=== PATIENT | female | born 1955 | race Caucasian/White ===

== ENCOUNTER 2022-12-14 07:35 | Outpatient (REF) | payer MEDICARE, SELFPAY ==
--- NOTE | ~2022-12-14 | CT_ITS ---
EXAMINATION: CT HEAD WITHOUT CONTRAST CLINICAL INFORMATION: Migraine headaches. COMPARISON: None available. TECHNIQUE: Contiguous axial imaging was performed from the skull base to vertex without intravenous administration of contrast. This CT examination was performed using dose optimization techniques as appropriate, variously including the following: *Automated exposure control. *Adjustment of mA and/or kV according to patient size (this includes techniques or standardized protocols for targeted exams where dose is matched to indication/reason for exam; i.e. extremities or head). *Use of iterative reconstruction technique. DLP: 648 mGy-cm FINDINGS: There is no evidence of acute intracranial hemorrhage or edematous territorial infarction. [place]-white matter differentiation is preserved. A few foci of hypoattenuation in the periventricular and deep white matter are consistent with mild to moderate microangiopathy. The ventricles are normal in morphology and size. No evidence for obstructive hydrocephalus. No abnormal mass effect or midline shift. No extra-axial fluid collections. Calcific atherosclerotic disease of the intracranial internal carotid arteries. No hyperdense vessel sign. No acute soft tissue or osseous abnormalities. Mild mucosal thickening of the paranasal sinuses. The mastoid air cells and middle ear cavities are clear. CT/CT head/brain wo IV con IMPRESSION: 1. No evidence of acute intracranial hemorrhage or edematous territorial infarction. 2. Mild to moderate underlying microangiopathy.
== END 2022-12-14 07:36 | disposition home or self-care (01) ==
LOC: HO.CT 07:35
PROVIDERS: PCP Internal Medicine; Visit Provider Psychiatry & Neurology Neurology
DX: G43.909 Migraine, unspecified, not intractable, without status migrainosus (principal)
CPT/HCPCS: 70450

== ENCOUNTER 2025-05-12 09:15 | Outpatient (AMB) | payer MEDICARE, SELFPAY ==
--- NOTE | 2025-05-12 09:19 | MHC.OFFVIS ---
Intake Visit Reasons: 6m Allergies latex Allergy (Unknown, Verified 05/12/25 09:25) Unknown Penicillins Allergy (Unknown, Verified 05/12/25 09:25) Unknown Sulfa (Sulfonamide Antibiotics) Allergy (Unknown, Verified 05/12/25 09:25) Unknown Medication List - Last Reconciled 05/12/25 by Thelma Maldonado CNP amitriptyline 100 mg PO BEDTIME gzcxwcfbjp-qmykjuryhjrpt-rixt 50-325-40 mg 1 tab PO Q6H PRN duloxetine 120 mg PO DAILY nitrofurantoin monohyd/m-cryst 100 mg 1 cap PO BID omeprazole 40 mg PO BID propranolol ER 120 mg PO DAILY simvastatin 20 mg PO BEDTIME HPI Comments Details: She was doing okay. Migraines were not bad. Butalbital as needed helped. More generalized body pains all over from fibromyalgia, worse with colder weather. Balance off at times. Few falls without any injuries. Tremors were stable. No functional impairment. Brain fog was about the same. Sleep was not so good. Under some stress related to helping care for her sister with MS. Had episode in [facility] 2024 while in [place] where she suddenly could not move legs, no further episodes. Had cataract surgery in 2024. Both her parents passed within months of each other in 2023. Diagnosed as complicated migraine in 10/2015. Had normal labs and MRI brain. [facility] Medical History (Updated 05/12/25 @ 09:23 by Thelma Maldonado CNP) Left leg weakness Fibromyalgia Migraine Peripheral neuropathy Review of Systems Const Denies chills, Denies daytime sleepiness, Denies difficulty sleeping, Reports fatigue, Denies fever(s), Denies frequent falls, Reports headache(s), Denies increased appetite, Denies poor appetite, Denies snoring, Denies weakness, Denies weight gain and Denies weight loss Eyes Denies loss of vision ENT Denies vertigo, Denies dizziness, Reports headache(s) and Denies neck pain Card Denies chest pain at rest, Denies chest pain with activity, Denies syncope, Denies leg edema, Denies palpitations, Denies dyspnea and Denies dyspnea on exertion Resp Denies cough, Denies dyspnea, Denies dyspnea on exertion and Denies snoring GI Denies abdominal pain, Denies constipation, Denies heartburn, Denies diarrhea and Denies nausea Denies urinary frequency, Denies urinary incontinence and Denies urinary urgency Musc Denies abnormal gait, Denies back pain, Denies myalgias, Denies arthralgias, Denies neck pain, Denies numbness and Denies tingling Neuro Denies abnormal gait, Denies vertigo, Denies dizziness, Denies syncope, Denies frequent falls, Reports headache(s), Denies lack of coordination, Denies loss of vision, Denies memory loss, Denies numbness, Denies Other visual disturbances, Denies restless legs, Denies seizure-like activity, Denies tingling, Denies paresthesias, Reports tremor(s) and Denies weakness Psych Denies anxiety, Denies depression, Denies auditory hallucinations, Denies memory loss and Denies visual hallucinations Endo Reports fatigue and Denies palpitations Physical Exam Const Other: General Appearance:? normal, in no acute distress. Heart:? S1, S2 normal, no murmurs. Lungs:? clear anteriorly and posteriorly. Musculoskeletal:? normal. Extremities:? no edema. Psych:? alert, oriented, cognitive function intact, cooperative with exam. Neuro Other: Abnormal Neurological Findings:?left lateral rectus weakness. Slight breakdown of saccadic horizontal eye movements with diplopia on left gaze. Slight left sided hyperrelexia. Plantars are equivocal. Truncal ataxia on tandem gait. Mental Status: alert and oriented X 3. Normal attention, orientation, memory, and affect. Cranial Nerves: Pupils are equal, round, and reactive to light. External ocular muscles are intact. Visual fleming are full, no ptosis. Face is symmetrical, no facial weakness or droop. Facial sensations are normal. Tongue protrudes in midline. Palate elevates symmetrically. Shoulder shrugging is normal Motor Examination: As above. Sensory Exam: Normal light touch, temperature, pinprick, vibration, and joint-position sensations. Rhomberg sign is absent. Coordination: Truncal ataxia on tandem gait. Gait Exam: Within normal limits. Cerebellar Signs: Xuinix-vw-estz is okay. Extrapyramidal System: No tremor, rigidity with normal facial expressions. No bradykinesia. No bradyphrenia. Normal arm swing and posture. No propulsion or retropulsion. Speech: Normal. Results Reviewed Results Reviewed: 01/01/24 NCV/EMG LE Motor axonal loss diffusely compared to the study done in 2012. Normal EMG in the right L4-S1 innervated muscles. MRI brain at [place] in 2014 WWO: WNL (reported) EEG at off in 2015: WNL EEG at off in 2017: WNL Assessment & Plan Assessment & Plan (1) Migraine: Code(s): G43.909 - Migraine, unspecified, not intractable, without status migrainosus Category: Medical Qualifiers: Migraine type: unspecified Status migrainosus presence: without status migrainosus Intractability: not intractable Qualified Code(s): G43.909 - Migraine, unspecified, not intractable, without status migrainosus Plan: Continue propranolol ER 120mg 1 capsule daily. Continue [id number]-[id number] 50-325-40mg 1 tablet as needed q6h for headache #30 for 30 days. (2) Fibromyalgia: Code(s): M79.7 - Fibromyalgia Category: Medical Plan: Treatment options discussed, including trying increased dose of amitriptyline or adding another medication. Increase amitriptyline 100mg 1.5 tablet at bedtime. Follow up in 3 months or sooner as needed. (3) Tension headache: Code(s): G44.209 - Tension-type headache, unspecified, not intractable Category: Medical Plan . Medications: New amitriptyline 150 mg (1.5 x 100 mg) PO BEDTIME 135 tabs 1RF 90 days propranolol ER 120 mg PO DAILY 90 caps 1RF 90 days xqptfuajiq-qwkhyctmjcwjx-xmpj 50-325-40 mg 1 tab PO Q6H PRN 30 tabs 1RF headache 30 days Coding Level of Care Code Est Pt Level 4 (46271) Diagnoses Migraine without status migrainosus, not intractable, unspecified migraine type G43.909 Migraine type: unspecified Status migrainosus presence: without status migrainosus Intractability: not intractable Fibromyalgia M79.7 Tension headache G44.209
== END 2025-05-12 09:58 | disposition home or self-care (01) ==
PROVIDERS: PCP Internal Medicine; Referring Provider Internal Medicine; Visit Provider Registered Nurse
DX: G43.909 Migraine, unspecified, not intractable, without status migrainosus (principal); M79.7 Fibromyalgia; G44.209 Tension-type headache, unspecified, not intractable
CPT/HCPCS: 99214

== ENCOUNTER → 2025-05-12 09:15 | Outpatient (BNVA) | payer MEDICARE, SELFPAY | PROVIDERS: PCP Internal Medicine; Referring Provider Internal Medicine; Visit Provider Registered Nurse | DX: G43.909 Migraine, unspecified, not intractable, without status migrainosus (principal); M79.7 Fibromyalgia; G44.209 Tension-type headache, unspecified, not intractable | CPT/HCPCS: 99212 ==